=== PATIENT | female | born 1970 | race Caucasian/White ===

== ENCOUNTER 2018-03-05 06:47 | Outpatient (RCR) | payer OTHER ==
[~2018-03-05 06:47] MED LIST: ACE500 PO; AMOX-559 PO; BACDS PO; LEVO50TA80 PO; LOP2 PO; LOR1 PO; LOR5 PO; LOR5/325 PO; MET10 PO; ONDA4TAB PO; RIFA300C50 PO; SULF-170 PO; WARF-12 PO; [UNRECOGNIZED DRUG - OTHER]; [UNRECOGNIZED DRUG - OTHER] NS
[2018-03-05 15:34] VITALS: BP 128/74
--- NOTE | 2018-03-12 14:37 | ONCOLOGY FOLLOW UP NOTE ---
EVENT DATE: March 05, 2018 REASON FOR FOLLOWUP History of stage IIA, triple-negative left breast cancer, diagnosed 2007. INTERIM HISTORY Bibi returns to clinic for a followup visit today. Symptomatically, she reports that she has been doing quite well. She continues to work long hours, and she does report some fatigue that she relates to her work. She reports no new pain. She has had no skin changes. She has noticed no lumps or bumps under the arms. She has had a good appetite, and her weight has been pretty stable. She is not exercising regularly. She reports no recent changes in bowel or bladder habits. In general, she feels that things are going quite well. REVIEW OF SYSTEMS Otherwise negative, and all systems are reviewed. ONCOLOGY HISTORY Stage IIA, triple-negative, high-grade, invasive ductal carcinoma of the left breast, diagnosed October 03, 2007. a. BRAC-1 and -2 mutations not detected. b. October 20, 2007: Lumpectomy and sentinel lymph node biopsy (pT2 pN0 M0). c. January 28, 2008: Initiation of adjuvant AC chemotherapy. Postoperative MRSA infection and seroma, as well as PICC-associated DVT and delay in initiation of cycle 3. d. March 2008: Completion of adjuvant AC. e. April 2008 to May 2008: Adjuvant dose-dense Taxol. f. August 2008: Completion of adjuvant radiation therapy. g. Ongoing clinical monitoring with no evidence of disease. PAST MEDICAL HISTORY Breast cancer as above. CURRENT MEDICATIONS None. ALLERGIES CEFTIN. FAMILY HISTORY There is a history of diabetes in her maternal grandfather, breast cancer in her mother, hypertension in her father, and thyroid disease in her paternal grandmother. SOCIAL HISTORY The patient is a nonsmoker and nondrinker. There is no history of illicit drug use. VITAL SIGNS Temperature is 97, blood pressure 128/74, heart rate is 65, respirations 16, oxygen saturation is 99% on room air. PHYSICAL EXAMINATION GENERAL: Patient is alert and oriented times three, in no apparent distress, sitting in the exam room chair. She appears quite healthy. She is dressed up for Halloween. HEENT: Anicteric sclerae. NEUROLOGIC: Grossly nonfocal, and her gait is normal. EXTREMITIES: No edema, clubbing, or cyanosis. SKIN: Cursory exam reveals no concerning rash or lesion. LABORATORY STUDIES None today. IMAGING Most recent mammogram performed on January 27, 2018, reveals benign findings with recommendations for routine screening mammogram in one year. ASSESSMENT AND PLAN History of triple-negative breast cancer. I had a good visit with Bibi today. Symptomatically, she continues to do remarkably well. She has no signs or symptoms to suggest breast cancer recurrence. We spent time reviewing her oncology history. At this point, she is very happy with how things are going. Her most recent mammogram results are encouraging. We discussed the merits of ongoing medical oncology followup. Aside from self-exams and annual mammograms and physicals, my only particular recommendation for Bibi would be to increase her level of exercise. 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 She does understand the importance of it, but she is skeptical that she will be able to do much more in this regard. I would be more than happy to visit with Bibi again in a year's time or on an as-needed basis. I am very happy with how she is doing. TOAN
== END 2018-04-02 13:17 | disposition home or self-care (01) ==
LOC: ONC 06:47
PROVIDERS: ATTEND Internal Medicine Medical Oncology
DX: C50.919 Malignant neoplasm of unspecified site of unspecified female breast (principal); Z92.21 Personal history of antineoplastic chemotherapy; Z92.3 Personal history of irradiation
CPT/HCPCS: 99212